=== PATIENT | female | born 1950 | race Caucasian/White ===

== ENCOUNTER 2016-12-31 15:20 | Emergency (ER) | payer MEDICARE, OTHER ==
[~2016-12-31] VITALS: Ht 162.6 cm; Wt 49.4 kg
[2016-12-31 15:20] VITALS: BP 142/86
--- NOTE | 2016-12-31 15:57 | PHYS DOC ---
Past History Past Medical History: CHF, COPD Past Surgical History: Knee Replacement Alcohol Use: None Drug Use: None Adult General Chief Complaint Chief Complaint: KNEE INJURY HPI HPI 66-year-old female with a prior history of a left total knee replacement a year ago, now presents to the emergency department after tripping when her sandal snagged on something falling to the ground on both knees and sustaining some abrasions. Patient was across the street at the [place] as a visitor when this event occurred. She had a mechanical trip and fall she did not have any prodromal symptoms or get lightheadedness or near syncope. She denies other complaints and has no pain or tenderness in her thighs and hips or pelvis area. She does have abrasions and states that her tetanus is not up-to-date. She is able to walk and did walk after the fall she wanted to get checked out to make sure she didn't have a serious injury. No other complaints Review of Systems Review of Systems Constitutional: Denies fever or chills [] Eyes: Denies change in visual acuity, redness, or eye pain [] HENT: Denies nasal congestion or sore throat [] Respiratory: Denies cough or shortness of breath [] Cardiovascular: No additional information not addressed in HPI [] GI: Denies abdominal pain, nausea, vomiting, bloody stools or diarrhea [] : Denies dysuria or hematuria [] Musculoskeletal: Denies back pain or joint pain [] Integument: Denies rash or skin lesions [] Neurologic: Denies headache, focal weakness or sensory changes [] Endocrine: Denies polyuria or polydipsia [] Physical Exam Physical Exam 66-year-old female smiling alert communicative and cooperative with perfect makeup in no acute distress. Mild superficial abrasions bilateral anterior knees in the patellar distribution. No bony tenderness or deformity. No effusion bilaterally. Table, Nontender pelvis and hips. Femoral distributions with no bony tenderness swelling and with soft compartments. Lower leg unremarkable as well. Normal painless range of motion of both knees with no ligamentous laxity or joint instability on the right and normal appearing postsurgical knee on the left Constitutional: Well developed, well nourished, no acute distress, non-toxic appearance. [] HENT: Normocephalic, atraumatic, bilateral external ears normal, oropharynx moist, no oral exudates, nose normal. [] Eyes: PERRLA, EOMI, conjunctiva normal, no discharge. [] Neck: Normal range of motion, no tenderness, supple, no stridor. [] Cardiovascular:Heart rate regular rhythm, no murmur [] Lungs & Thorax: Bilateral breath sounds clear to auscultation [] Abdomen: Bowel sounds normal, soft, no tenderness, no masses, no pulsatile masses. [] Skin: Warm, dry, no erythema, no rash. [] Back: No tenderness, no CVA tenderness. [] Extremities: No tenderness, no cyanosis, no clubbing, ROM intact, no edema. [] Neurologic: Alert and oriented X 3, normal motor function, normal sensory function, no focal deficits noted. [] Psychologic: Affect normal, judgement normal, mood normal. [] Current Patient Data Vital Signs Vital Signs Date Time Temp Pulse Resp B/P (MAP) Pulse Ox O2 Delivery O2 Flow Rate FiO2 12/31/16 15:20 97.9 77 18 95 Room Air EKG EKG [] Radiology/Procedures Radiology/Procedures [] Course & Med Decision Making Course & Med Decision Making Pertinent Labs and Imaging studies reviewed. (See chart for details) Signs and symptoms consistent with mild contusions of the knees bilaterally with mild abrasions. Tetanus will be updated. X-rays pending to rule out less likely possibility of bony abnormality or prosthetic abnormality versus periprosthetic injury. If results are unremarkable patient agrees with outpatient follow-up. She is aware to rest apply ice elevate take NSAIDs and apply anabiotic ointment to the abrasions. Patient will follow-up with PCP tomorrow and strict return precautions will be given [] Dragon Disclaimer Dragon Disclaimer This chart was dictated in whole or in part using Voice Recognition software in a busy, high-work load, and often noisy Emergency Department environment. It may contain unintended and wholly unrecognized errors or omissions. Departure Departure: Impression: Primary Impression: Contusion of knee, left Additional Impression: Contusion of knee, right Disposition: 01 HOME, SELF-CARE Condition: STABLE Patient Instructions: Abrasions, Contusions-SportsMed, Diphtheria Toxoid; Tetanus Toxoid Adsorbed, DT, Td Additional Instructions: You have contusions or bruising to both knees. The areas may get black and blue or they may not. Your x-ray showed no signs of fracture of your right knee and no signs of damage to your left knee replacement or the bones around. Your abrasions have been treated with bacitracin dressings. Administer wound care clean and dry them daily and apply fresh dressing preferably with anabolic ointment to keep them moist I'll the heel. Her tetanus has been updated and this includes pertussis coverage. Follow-up with your doctor in 2 days and return immediately for new severe or worsening symptoms. Problem Qualifiers VINOD DIALLO MD Dec 31, 2016 15:57
[2016-12-31] MEDS ORDERED: DIPHTH,PERTUSS(ACELL),TET TOX 0.5 ML DISP.SYRIN. VAX IM ONE (16:15)
--- NOTE | 2016-12-31 16:16 | RAD ---
Knee x-rays Indication: Bilateral knee pain status post fall Technique: AP and lateral views of the bilateral knees Comparison: None Findings: Status post total arthroplasty of the left knee. There is no periprostatic lucency to suggest loosening. No dislocation. Small left suprapatellar effusion. Right knee within normal limits. Impression: No acute fracture or dislocation. Trace left suprapatellar effusion.
[2016-12-31] MEDS ORDERED: TETANUS AND DIPHTHERIA TOX/PF 0.5 ML VIAL. VAX IM ONE (16:30)
== END 2016-12-31 17:23 | disposition home or self-care (01) ==
LOC: ER 15:20
DX: S80.02XA Contusion of left knee, initial encounter (principal); S80.01XA Contusion of right knee, initial encounter; J44.9 Chronic obstructive pulmonary disease, unspecified; I50.9 Heart failure, unspecified; Z96.652 Presence of left artificial knee joint; W01.0XXA Fall on same level from slipping, tripping and stumbling without subsequent striking against object, initial encounter; Y93.89 Activity, other specified; Y99.8 Other external cause status; Y92.89 Other specified places as the place of occurrence of the external cause
CPT/HCPCS: 73560; 90471; 90714; 99284-25